=== PATIENT | male | born 1950 | race Caucasian/White ===

== ENCOUNTER 2020-09-06 17:42 | Emergency (ER) | payer MEDICARE, OTHER ==
[2020-09-06] MEDS ORDERED: DESYREL50 MG PO (18:01)
[2020-09-06] MEDS ORDERED: PROZAC40 M1 PO (18:01)
[2020-09-06] MEDS ORDERED: CLARITIN 1010 MG/TAB PO (18:02)
[2020-09-06] MEDS ORDERED: CYCLOBENZAPRINE10 M1 PO (19:20)
[2020-09-06 19:29] VITALS: BP 150/89
== END 2020-09-06 19:29 | disposition home or self-care (01) ==
LOC: ED 17:42
DX: M54.5 Low back pain (principal); F17.210 Nicotine dependence, cigarettes, uncomplicated
CPT/HCPCS: J1885; J2360